=== PATIENT | female | born 1995 | race Two or more races ===

== ENCOUNTER → 2024-09-19 | Outpatient (CLI) | payer MEDICAID ==
[2024-09-19 12:02] LABS: Hematocrit 39.6 % (36.0-46.0); Hemoglobin 13.3 g/dL (12.2-16.2); Mean Corpuscular Hemoglobin 28.1 pg (28.0-32.0); Mean Corpuscular Volume 83.6 fL (80.0-100.0); Nucleated Red Blood Cells % 0.0 %
[2024-09-21 08:07] LABS: Chlamydia Trachomatis, NAA Negative (Negative); Neisseria gonorrhoeae, NAA Negative (Negative)
== END | disposition home or self-care (01) ==
LOC: LAB 11:15
DX: Z01.419 Encounter for gynecological examination (general) (routine) without abnormal findings (principal); Z11.2 Encounter for screening for other bacterial diseases; Z11.3 Encounter for screening for infections with a predominantly sexual mode of transmission; Z72.51 High risk heterosexual behavior
CPT/HCPCS: 36415; 85025; 86695; 86696; 86703; 86780; 87340; 87902